=== PATIENT | male | born 1990 | race Hispanic/Latino ===

== ENCOUNTER 2017-11-19 07:22 | Emergency (ER) | payer OTHER, SELFPAY ==
[2017-11-19] MEDS ORDERED: NA CHLORIDE 0.9% 1,000 ML ONE (07:54)
[2017-11-19 08:05] LABS: Absolute Lymphocytes (CBC) 1.2 K/uL (0.7-4.9); Absolute Monocytes 0.5 K/uL (0.1-1.3); Absolute Neutrophil 3.3 K/uL (1.8-8.0); Basophils % 0.5 % (0-1.3); Eosinophils % 0.8 % (0-4.4); Hematocrit 45.7 % (39.6-49.0); Lymphocytes % 24.1 % (15.3-44.8); MCH 32.2 pg (27.0-35.0); MCV 93.7 fL (80-100); MPV 12.6 fL (7.6-11.3); Monocytes % 9.3 % (3.3-12.3); RBC Red Blood Cell Count 4.88 M/uL (4.33-5.43)
[2017-11-19 08:11] LABS: Arterial Blood Carboxyhemoglob 0.5 % (0-1.5); Blood Gas Oxyhemoglobin 96.6 % (94-97)
--- NOTE | 2017-11-19 08:25 | ER ---
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 I smelled something, smelled very strong and acidic. then I started coughing, wheezing, vomited, my hands and arms started cramping, my legs and knees felt very wobbly. still having cramping in domenico arms and legs, and I still feel very SOB. Transition of care: patient was not received from another setting of care. Onset of symptoms was November 19, 2017 at 06:30. Risk Assessment: Do you want to hurt yourself or someone else? Patient reports no desire to harm self or others. Initial Sepsis Screen: Does the patient meet any 2 criteria? No. Patient's initial sepsis screen is negative. Does the patient have a suspected source of infection? No. Patient's initial sepsis screen is negative. Care prior to arrival: None. 07:36 Method Of Arrival: Ambulatory 07:36 Acuity: NITO 3 ch Triage Assessment: 07:39 General: Appears in no apparent distress. comfortable, Behavior is cooperative, ch appropriate for age, anxious, restless. Pain: Complains of pain in left arm Pain currently is 9 out of 10 on a pain scale. EENT: Reports sore throat. Neuro: Level of Consciousness is awake, alert, obeys commands, Oriented to person, place, time, situation, Dump Attendant are equal bilaterally Moves all extremities. Full function Gait is steady, Speech is normal, Facial symmetry appears normal, Facial symmetry: tongue is midline, Pupils are PERRLA. Respiratory: Reports shortness of breath cough that is productive, labored breathing Airway is patent Respiratory effort is even, unlabored, Respiratory pattern is Breath sounds are diminished bilaterally. Breath sounds with wheezes in right posterior lower lobe Onset: The symptoms/episode began/occurred suddenly, the patient has mild shortness of breath. GI: Abdomen is flat, non-distended, Bowel sounds present X 4 quads. Abd is soft and non tender X 4 quads. Derm: Skin is pink, warm \T\ dry. Historical: - Allergies: 07:39 No Known Allergies; ch - Home Meds: 07:39 Vyvanse oral oral [Active]; ch - PMHx: 07:39 ADD/ADHD; ch - PSHx: 07:39 None; ch - Immunization history:: Adult Immunizations up to date. - Social history:: Smoking status: Patient/guardian denies using tobacco. - Ebola Screening: : Patient negative for fever greater than or equal to 101.5 degrees Fahrenheit, and additional compatible Ebola Virus Disease symptoms Patient denies exposure to infectious person Patient denies travel to an Ebola-affected area in the 21 days before illness onset No symptoms or risks identified at this time. - Family history:: not pertinent. Screenin:48 Abuse screen: Denies threats or abuse. Denies injuries from another. Nutritional ch screening: No deficits noted. Tuberculosis screening: No symptoms or risk factors identified. Fall Risk None identified. Assessment: 07:48 Reassessment: Patient appears in no apparent distress at this time. No changes from previously documented assessment. 08:02 Reassessment: pt c/o feeling cramping in domenico arms, pt appers anxious as well. pt states ch he still feels like he cannot get a full breath in. 08:28 Reassessment: Patient appears in no apparent distress at this time. AWAITING PT TO GIVE ch URINE SAMPLE AND GET COMP RESULTS PRIOR TO DISCHARGE. Cardiovascular: Rhythm is sinus rhythm. 08:59 Reassessment: Patient appears in no apparent distress at this time. Patient and/or ch family updated on plan of care and expected duration. Pain level reassessed. Patient is alert, oriented x 3, equal unlabored respirations, skin warm/dry/pink. AWAITING URINE RESULTS PRIOR TO DISCHARGE. AWAITING MEMBERSHIP ADMINISTRATOR TO SPEAK WITH PT PRIOR TO DISCHARGE. Patient states feeling better. 10:00 Reassessment: Patient appears in no apparent distress at this time. Patient and/or ch family updated on plan of care and expected duration. Pain level reassessed. Patient is alert, oriented x 3, equal unlabored respirations, skin warm/dry/pink. AWAITING UDS RESULTS Patient states feeling better. Patient states symptoms have improved. 10:40 Reassessment: ALL RESULTS BACK. ERP NOTIFIED, AWAITING DR. GUERRA TO SPEAK WITH PT ch PRIOR TO DISCHARGE. 10:49 Reassessment: PT DRINKING WATER AND JUICE, EATING CRACKERS. 11:10 Reassessment: Patient appears in no apparent distress at this time. AWAITING ERP TO COME DISCUSS DX AND RESULTS WITH PT PRIOR TO DISCHARGE. 11:25 Reassessment: Patient appears in no apparent distress at this time. AWAITING PHYSICIAN TO REVIEW RESULTS AND DX WITH PT. 11:42 Reassessment: Patient appears in no apparent distress at this time. erp speaks with pt, ch pt to be discharged home. Vital Signs: 07:39 BP 151 / 93; Pulse 104; Resp 17; Temp 98.9; Pulse Ox 99% on R/A; Weight 88 kg; Height 5 ch ft. 8 in. (172.72 cm); Pain 9/10; 08:28 BP 137 / 80; Pulse 88; Resp 18; Temp 98.5; Pulse Ox 99% on R/A; Pain 6/10; ch 09:00 BP 120 / 73; Pulse 66; Resp 14; Temp 98.2; Pulse Ox 99% on R/A; Pain 3/10; ch 10:41 BP 123 / 81; Pulse 86; Resp 14; Pulse Ox 98% on R/A; Pain 5/10; ch 11:25 BP 125 / 88; Pulse 69; Resp 12; Temp 97.9; Pulse Ox 99% on R/A; Pain 2/10; ch 07:39 Body Mass Index 29.50 (88.00 kg, 172.72 cm) ED Course: 07:25 Patient arrived in ED. mr 07:25 None, None is Private Physician. mr 07:28 Jeremy Guerra MD is Attending Physician. [facility] 07:36 Corinna Reece, PREETHI is Primary Nurse. ch 07:38 Triage completed. ch 07:39 Arm band placed on left wrist. Patient placed in an exam room, on a stretcher, on residential monitor, on pulse oximetry. 07:48 No apparent distress. Resting quietly. ch 07:48 Patient has correct armband on for positive identification. Placed in gown. Bed in low position. Call light in reach. Side rails up X 1. library monitor on. Pulse ox on. NIBP on. Warm blanket given. 07:48 No provider procedures requiring assistance completed. 08:01 Initial lab(s) drawn, by tx, sent to lab. RT at bedside doing an ABG. Inserted saline ch lock: 18 gauge in left forearm, using aseptic technique. Blood collected. 08:02 X-ray completed. Portable x-ray completed in exam room. Patient tolerated procedure jb2 well. 08:08 Chest Single View XRAY In Process Unspecified. EDMS 08:48 UDS Sent. 5 08:48 Comprehensive Metabolic Panel Sent. [facility] 08:48 CBC with Diff Sent. [facility] 08:49 Urine collected: clean catch specimen, clear. [facility] 11:42 IV discontinued, intact, bleeding controlled, No redness/swelling at site. Pressure ch dressing applied. Administered Medications: 08:03 Drug: NS 0.9% 1000 ml Route: IV; Rate: 1 bolus; Site: left forearm; 09:01 Follow up: IV Status: Completed infusion; IV Intake: 1000ml ch Intake: 09:01 IV: 1000ml; Total: 1000ml. Outcome: 08:25 Discharge ordered by . [facility] 11:42 Discharged to home ambulatory. 11:42 Condition: stable 11:42 Discharge instructions given to patient, Instructed on discharge instructions, follow up and referral plans. Demonstrated understanding of instructions, follow-up care. 11:52 Patient left the ED. Signatures: Dispatcher [employer] Corinna Cano, Jeremy Cortez RN, ch, MD MD cha Rivera, Maria mr [facility]
--- NOTE | 2017-11-19 08:25 | EDPHYS ---
Physician Documentation [facility] Name: Ty Lucas Age: 27 yrs Sex: Male : 1990 Arrival Date: 11/19/2017 Time: 07:25 Bed 17 Private MD: None, None ED Physician Jeremy Baker HPI: 11/19 07:48 This 27 yrs old Male presents to ER via Ambulatory with complaints of Chemical prabha Inhalation. 07:48 The patient has shortness of breath while working. Onset: The symptoms/episode prabha began/occurred just prior to arrival. Duration: The symptoms are intermittent, with no pattern. The patient's shortness of breath has no apparent modifying factors. at work, chemical vapor exposure. Associated signs and symptoms: Pertinent positives: sob and cramping. Severity of symptoms: At their worst the symptoms were mild moderate in the emergency department the symptoms are unchanged. Onset: The symptoms/episode began/occurred. The patient has not experienced similar symptoms in the past. Historical: - Allergies: 07:39 No Known Allergies; ch - Home Meds: 07:39 Vyvanse oral oral [Active]; ch - PMHx: 07:39 ADD/ADHD; ch - PSHx: 07:39 None; ch - Immunization history:: Adult Immunizations up to date. - Social history:: Smoking status: Patient/guardian denies using tobacco. - Ebola Screening: : Patient negative for fever greater than or equal to 101.5 degrees Fahrenheit, and additional compatible Ebola Virus Disease symptoms Patient denies exposure to infectious person Patient denies travel to an Ebola-affected area in the 21 days before illness onset No symptoms or risks identified at this time. - Family history:: not pertinent. ROS: 07:48 Constitutional: Negative for fever, chills, and weight loss, Eyes: Negative for injury, prabha pain, redness, and discharge, ENT: Negative for injury, pain, and discharge, Neck: Negative for injury, pain, and swelling, Cardiovascular: Negative for chest pain, palpitations, and edema, Abdomen/GI: Negative for abdominal pain, nausea, vomiting, diarrhea, and constipation, Back: Negative for injury and pain, : Negative for injury, bleeding, discharge, and swelling, MS/Extremity: Negative for injury and deformity, Skin: Negative for injury, rash, and discoloration, Neuro: Negative for headache, weakness, numbness, tingling, and seizure, Psych: Negative for depression, anxiety, suicide ideation, homicidal ideation, and hallucinations, Allergy/Immunology: Negative for hives, rash, and allergies, Endocrine: Negative for neck swelling, polydipsia, polyuria, polyphagia, and marked weight changes, Hematologic/Lymphatic: Negative for swollen nodes, abnormal bleeding, and unusual bruising. 07:48 Respiratory: Positive for shortness of breath, anxious. Exam: 07:48 Constitutional: This is a well developed, well nourished patient who is awake, alert, prabha and in no acute distress. Head/Face: Normocephalic, atraumatic. Eyes: Pupils equal round and reactive to light, extra-ocular motions intact. Lids and lashes normal. Conjunctiva and sclera are non-icteric and not injected. Cornea within normal limits. Periorbital areas with no swelling, redness, or edema. ENT: Nares patent. No nasal discharge, no septal abnormalities noted. Tympanic membranes are normal and external auditory canals are clear. Oropharynx with no redness, swelling, or masses, exudates, or evidence of obstruction, uvula midline. Mucous membranes moist. Neck: Trachea midline, no thyromegaly or masses palpated, and no cervical lymphadenopathy. Supple, full range of motion without nuchal rigidity, or vertebral point tenderness. No Meningismus. Chest/axilla: Normal chest wall appearance and motion. Nontender with no deformity. No lesions are appreciated. Cardiovascular: Regular rate and rhythm with a normal S1 and S2. No gallops, murmurs, or rubs. Normal PMI, no JVD. No pulse deficits. Respiratory: Lungs have equal breath sounds bilaterally, clear to auscultation and percussion. No rales, rhonchi or wheezes noted. No increased work of breathing, no retractions or nasal flaring. Abdomen/GI: Soft, non-tender, with normal bowel sounds. No distension or tympany. No guarding or rebound. No evidence of tenderness throughout. Back: No spinal tenderness. No costovertebral tenderness. Full range of motion. Male : Normal genitalia with no discharge or lesions. Skin: Warm, dry with normal turgor. Normal color with no rashes, no lesions, and no evidence of cellulitis. MS/ Extremity: Pulses equal, no cyanosis. Neurovascular intact. Full, normal range of motion. Neuro: Awake and alert, GCS 15, oriented to person, place, time, and situation. Cranial nerves II-XII grossly intact. Motor strength 5/5 in all extremities. Sensory grossly intact. Cerebellar exam normal. Normal gait. Psych: Awake, alert, with orientation to person, place and time. Behavior, mood, and affect are within normal limits. 07:56 Musculoskeletal/extremity: DVT Exam: No signs of deep vein thrombosis. no pain, no prabha swelling, no tenderness, negative Homans' sign noted on exam, no appreciated bluish discoloration, no erythema, no increased warmth. Vital Signs: 07:39 BP 151 / 93; Pulse 104; Resp 17; Temp 98.9; Pulse Ox 99% on R/A; Weight 88 kg; Height 5 ch ft. 8 in. (172.72 cm); Pain 9/10; 08:28 BP 137 / 80; Pulse 88; Resp 18; Temp 98.5; Pulse Ox 99% on R/A; Pain 6/10; ch 09:00 BP 120 / 73; Pulse 66; Resp 14; Temp 98.2; Pulse Ox 99% on R/A; Pain 3/10; ch 10:41 BP 123 / 81; Pulse 86; Resp 14; Pulse Ox 98% on R/A; Pain 5/10; ch 11:25 BP 125 / 88; Pulse 69; Resp 12; Temp 97.9; Pulse Ox 99% on R/A; Pain 2/10; ch 07:39 Body Mass Index 29.50 (88.00 kg, 172.72 cm) MDM: 07:28 Patient medically screened. [facility] 07:52 Data reviewed: vital signs, nurses notes, lab test result(s), radiologic studies. [facility] 11/19 07:47 Order name: CBC with Diff prabha 11/19 07:47 Order name: Comprehensive Metabolic Panel; Complete Time: 10:45 prabha 11/19 07:47 Order name: UDS; Complete Time: 10:45 prabha 11/19 07:48 Order name: CBC with Automated Diff; Complete Time: 08:44 EDMS 11/19 07:56 Order name: ABG; Complete Time: 08:44 bd 11/19 08:48 Order name: Urine Dipstick--Ancillary (enter results); Complete Time: 08:53 11/19 07:47 Order name: Urine Dipstick-Ancillary (obtain specimen); Complete Time: 08:48 [facility] 11/19 07:47 Order name: Chest Single View XRAY; Complete Time: 10:45 [facility] 11/19 08:14 Order name: Labs - recollect needed; Complete Time: 09:01 11/19 10:45 Order name: PO challenge: juice; Complete Time: 10:49 [facility] Administered Medications: 08:03 Drug: NS 0.9% 1000 ml Route: IV; Rate: 1 bolus; Site: left forearm; 09:01 Follow up: IV Status: Completed infusion; IV Intake: 1000ml Disposition: 11/19/17 08:25 Discharged to Home. Impression: Anxiety disorder, unspecified, Dyspnea, unspecified - non toxic chemical inhalation, Hypokalemia. - Condition is Stable. - Discharge Instructions: Potassium Content of Foods, Hyperventilation, Shortness of Breath, Shortness of Breath, [id number], Hypokalemia, Chemical Inhalation Injury, Adult. - Work release form, Medication Reconciliation Form, Thank You Letter, Antibiotic Education, Prescription Opioid Use form. - Follow up: Private Physician; When: Today; Reason: Continuance of care. - Problem is new. - Symptoms have improved. Signatures: Dispatcher [employer] EDMS Stacie Oviedo Christina, Jeremy Cortez RN, ch, MD MD [facility] Corrections: (The following items were deleted from the chart) 10:47 08:25 11/19/2017 08:25 Discharged to Home. Impression: Anxiety disorder, unspecified; [facility] Dyspnea, unspecified - non toxic chemical inhalation. Condition is Stable. Discharge Instructions: Hyperventilation, Shortness of Breath, Shortness of Breath, [id number], Chemical Inhalation Injury, Adult. Forms are Medication Reconciliation Form, Thank You Letter, Antibiotic Education, Prescription Opioid Use. Follow up: Private Physician; When: Today; Reason: Continuance of care. Problem is new. Symptoms have improved. [facility] 11:52 10:47 11/19/2017 08:25 Discharged to Home. Impression: Anxiety disorder, unspecified; Dyspnea, unspecified - non toxic chemical inhalation; Hypokalemia. Condition is Stable. Discharge Instructions: Hyperventilation, Shortness of Breath, Shortness of Breath, [id number], Chemical Inhalation Injury, Adult. Forms are Medication Reconciliation Form, Thank You Letter, Antibiotic Education, Prescription Opioid Use. Follow up: Private Physician; When: Today; Reason: Continuance of care. Problem is new. Symptoms have improved. prabha
[2017-11-19 08:52] LABS: Urine Blood NEGATIVE (NEG); Urine Glucose NEGATIVE (NEG); Urine Protein NEGATIVE (NEG); Urine pH 5.5 (5.0-7.0)
--- NOTE | 2017-11-19 08:59 | RAD REPORT ---
EXAM DESCRIPTION: RAD - Chest Single View - 11/19/2017 8:08 am CLINICAL HISTORY: Coughing, wheezing, vomiting, chemical inhalation COMPARISON: None. TECHNIQUE: AP portable chest image was obtained [id number] . FINDINGS: No pulmonary edema or acute lung parenchymal process seen. Heart and vasculature are stephanie l. No measurable pleural effusion and no pneumothorax. No gross bony abnormality seen. No acute aorti c findings suspected. IMPRESSION: No acute cardiopulmonary process.
[2017-11-19 09:03] LABS: ALT/SGPT 25 U/L (12-78); AST/SGOT 16 U/L (15-37); Albumin 3.8 g/dL (3.4-5.0); Alkaline Phosphatase 50 U/L (45-117); BUN Blood Urea Nitrogen 10 mg/dL (7-18); Bicarbonate 29 mmol/L (21-32); Bilirubin Total 0.3 mg/dL (0.2-1.0); Glucose Level 99 mg/dL (74-106); Potassium 3.2 mmol/L (3.5-5.1); Protein, Total 6.7 g/dL (6.4-8.2); Sodium Level 142 mmol/L (136-145)
[2017-11-19 10:11] LABS: Barbiturates NEGATIVE (NEGATIVE); Benzodiazepines NEGATIVE (NEGATIVE); Cocaine NEGATIVE (NEGATIVE); METHAMPHETAM POSITIVE (NEGATIVE); Methadone NEGATIVE (NEGATIVE); Opiates NEGATIVE (NEGATIVE); Phencyclidine NEGATIVE (NEGATIVE); THC Cannibis NEGATIVE (NEGATIVE)
== END 2017-11-19 11:52 | disposition home or self-care (01) ==
LOC: ER 07:22
DX: F41.9 Anxiety disorder, unspecified (principal); T59.891A Toxic effect of other specified gases, fumes and vapors, accidental (unintentional), initial encounter; E87.6 Hypokalemia; F90.9 Attention-deficit hyperactivity disorder, unspecified type
CPT/HCPCS: 36415; 71045; 80053; 80307; 81003; 82805; 85025; 96360; 99284; J7030